=== PATIENT | female | born 1985 | race Caucasian/White ===

== ENCOUNTER 2021-05-26 08:53 | Emergency (ER) | payer OTHER, MEDICAID ==
[~2021-05-26] VITALS: Ht 167.6 cm; Wt 68.0 kg
[2021-05-26] MEDS ORDERED: CARAFATE1 GM PO (09:08)
[2021-05-26] MEDS ORDERED: PROTONIX 20 MG20 MG PO (09:08)
[2021-05-26] MEDS ORDERED: VIT D PO (09:09)
[2021-05-26] MEDS ORDERED: VITAMIN B-121000 MC2 SUBLING (09:09)
[2021-05-26] MEDS ORDERED: IRON 100 PLUS1 EACH PO (09:09)
[2021-05-26] MEDS ORDERED: ZINC PO (09:10)
[2021-05-26 09:22] LABS: ABSOLUTE EOSINOPHILS 0.1 thou/uL (0.0-0.7); ABSOLUTE LYMPHOCYTES 1.4 thou/uL (0.8-5.3); ABSOLUTE MONOCYTES 0.4 thou/uL (0.0-1.2); ABSOLUTE NEUTROPHILS 3.9 thou/uL (1.6-8.1); BASOPHILS 0.5 %; EOSINOPHILS 1.9 %; HEMATOCRIT 30.2 % (37.0-47.0); HEMOGLOBIN 9.7 gm/dL (12.0-15.0); LYMPHOCYTES 24.7 %; MCHC 32.3 g/dL (28.0-37.0); MCV 77.6 fL (80.0-100.0); MONOCYTES 6.3 %; MPV 7.9 fl. (7.2-11.1); NUCLEATED RBCS 0 /100WBC; PLATELET COUNT* 311 thou/uL (150-400); POLYS 66.6 %; RBC 3.89 mil/uL (4.20-5.00); RDW-CV 18.3 % (10.5-14.5); WBC 5.9 thou/uL (4.0-11.0)
[2021-05-26 10:36] VITALS: BP 120/66
== END 2021-05-26 10:38 | disposition home or self-care (01) ==
LOC: M.ERS 08:53
PROVIDERS: Emergency Medicine
DX: N93.8 Other specified abnormal uterine and vaginal bleeding (principal); Z98.84 Bariatric surgery status; Z79.899 Other long term (current) drug therapy; Z91.048 Other nonmedicinal substance allergy status; Z91.040 Latex allergy status; Z88.0 Allergy status to penicillin